=== PATIENT | female | born 1960 | race Caucasian/White ===

== ENCOUNTER 2023-09-11 20:25 | Inpatient (IN) | payer SELFPAY ==
[2023-09-11] MEDS ORDERED: Ondansetron ODT 4 MG TAB PO PRN (21:45)
[2023-09-11] MEDS ORDERED: Nitroglycerin 0.4 MG TAB (25 Tab Bottle) SL PRN (21:47)
[2023-09-11] MEDS ORDERED: HumaLOG 300 UNITS/3 ML VIAL SC PRN (22:02)
[2023-09-11] MEDS ORDERED: Glucagon 1 MG/ML KIT IM PRN (22:02)
[2023-09-11] MEDS ORDERED: Dextrose 50% Abboject 50 ML SYRINGE SLOW IVP PRN (22:02)
[2023-09-11] MEDS ORDERED: Dextrose 5% in Water 1,000 ML IV PRN (22:02)
[2023-09-11 22:07] VITALS: BMI 42.1
[2023-09-11 22:44] LABS: Troponin I Less than 0.010 ng/mL (< 0.028)
[2023-09-11 23:01] LABS: Magnesium 1.7 mg/dL (1.6-2.6)
[2023-09-11] MEDS: Ipratropium/Albuterol 3 ML NEB NEB SCH (23:24)
[2023-09-12 00:01] LABS: Actual Bicarbonate (HCO3v) 24.4 mEq/L (22-28); Base Excess 0.5 mEq/L (-2.0 to +3.0); Chloride (VBG) 102 mmol/L (98-106); Hematocrit-VBG 44 % (36.0-47.0); Potassium (VBG) 4.02 mmol/L (3.70-5.30); Sodium 138 mmol/L (133-146); pH (venous) 7.438 (7.32-7.43)
[2023-09-12] MEDS: Azithromycin 500 MG in Sodium Chloride 0.9% 250 ML 250 ML IVPB SCH ×2 (00:02→23:57)
[2023-09-12] MEDS: Nicotine 14 MG PATCH TD SCH (00:03)
[2023-09-12 00:42] LABS: Bilirubin Negative (Negative); Blood, Urine Negative (Negative); Clarity Clear (Clear); Glucose, Urine (Dipstick) Normal (Negative); Ketone, Urine Negative (Negative); Leukocyte 250 Leu/uL (Negative); Nitrite Negative (Negative); Protein, Urine (Dipstick) 10 mg/dL (Neg-Trace); Specific Gravity, Urine 1.029 (1.002-1.036); Urobilinogen Normal mg/dL (Less than 2); pH, Urine 5.5 (5.0-9.0)
[2023-09-12 00:43] LABS: Bacteria/HPF None Seen HPF (None Seen); CAUTI Indications for Culture Dysuria,urgency,freq; RBC/HPF 0-3 HPF (0-3)
[2023-09-12 00:46] LABS: Urine Culture Reflex No No
[2023-09-12] MEDS: Ipratropium/Albuterol 3 ML NEB NEB SCH ×3 (02:02→13:53)
[2023-09-12 05:14] LABS: #Eosinphils 0.1 thou/uL (0.0-0.7); #Monocytes 0.7 thou/uL (0.11-0.59); #Neutrophils 5.3 thou/uL (1.40-6.50); %Basophils 0.4 % (0.0-1.0); %Eosinophils 0.7 % (0.0-10.0); %Lymphocytes 25.4 % (21.0-51.0); %Monocytes 8.7 % (0.0-10.0); %Neutrophils 64.4 % (42.0-75.0); Hematocrit 44.2 % (36.0-47.0); Hemoglobin 13.8 g/dL (12.0-16.0); Mean Corpuscular HGB CONC 31.2 g/dL (32.0-36.0); Mean Corpuscular Hemoglobin 26.4 pg (27.0-31.0); Mean Corpuscular Volume 84.7 fl (78.0-98.0); Mean Platelet Volume 11.6 fL (7.4-10.4); Platelet Count 240 10x3/uL (130-400); RBC Distribution Width 14.7 % (11.5-14.5); Red Blood Cell (RBC) Count 5.22 mill/uL (4.20-5.40); White Blood Cell (WBC) Count 8.2 10x3/uL (4.8-10.8)
[2023-09-12 05:23] LABS: Hemoglobin A1c 5.9 % (4.0-6.0)
[2023-09-12 05:37] LABS: ALT (SGPT) 12 U/L (8-55); AST (SGOT) 11 U/L (5-34); Albumin 4.4 g/dL (3.4-4.8); Alkaline Phosphatase 105 U/L (40-110); Anion Gap 13 mmol/L (10-20); BUN (Urea Nitrogen) 14 mg/dL (9.8-20.1); Bilirubin, Total 0.2 mg/dL (0.2-1.2); Calc. Creatinine Clearance 160 mL/min (70-130); Calcium 9.1 mg/dL (7.8-10.44); Carbon Dioxide 27 mmol/L (23-31); Chloride 102 mmol/L (98-107); Estimated GFR 98; Globulin 2.4 g/dL (2.4-3.5); Glucose 136 mg/dL (80-115); Protein, Total 6.8 g/dL (5.8-8.1); Sodium 138 mmol/L (136-145)
[2023-09-12 05:41] LABS: Troponin I Less than 0.010 ng/mL (< 0.028)
[2023-09-12] MEDS: Acetaminophen 325 MG TAB PO PRN ×3 (05:47→20:51)
[2023-09-12] MEDS: Mometasone 200 MCG/Formoterol 5 MCG 120 PUFF INHALER INH SCH ×2 (07:51→19:35)
[2023-09-12] MEDS ORDERED: Iopamidol-370 76% 500 ML MDV (1 ML CHARGE) ONE (08:35)
[2023-09-12] MEDS ORDERED: Pantoprazole 40 MG VIAL IVP SCH (09:00)
[2023-09-12] MEDS ORDERED: methylPREDNISolone Sod Succ 40 MG VIAL IVP SCH (09:00)
[2023-09-12] MEDS ORDERED: Famotidine/PF 20 mg/2ml Vial SLOW IVP SCH (09:00)
[2023-09-12] MEDS: Losartan 25 MG TAB PO SCH (09:06)
[2023-09-12] MEDS: Hydrochlorothiazide 25 MG TAB PO SCH (09:07)
[2023-09-12] MEDS: Aspirin Chewable 81 MG TAB PO SCH (09:08)
[2023-09-12] MEDS ORDERED: Ipratropium/Albuterol 3 ML NEB NEB PRN (11:07)
[2023-09-12] MEDS: HumaLOG 300 UNITS/3 ML VIAL SC PRN (20:51)
[2023-09-12] MEDS: Atorvastatin Calcium 20 MG TAB PO SCH (20:51)
[2023-09-13] MEDS: Nicotine 14 MG PATCH TD SCH ×3 (00:07→20:48)
[2023-09-13] MEDS: Mometasone 200 MCG/Formoterol 5 MCG 120 PUFF INHALER INH SCH ×2 (07:29→19:22)
[2023-09-13] MEDS: Hydrochlorothiazide 25 MG TAB PO SCH (11:49)
[2023-09-13] MEDS: Senokot S 8.6-50 MG TAB PO PRN (11:50)
[2023-09-13] MEDS: Losartan 25 MG TAB PO SCH (11:50)
[2023-09-13] MEDS: Aspirin Chewable 81 MG TAB PO SCH (11:50)
[2023-09-13] MEDS: Acetaminophen 325 MG TAB PO PRN ×2 (11:50→20:46)
[2023-09-13] MEDS: Atorvastatin Calcium 20 MG TAB PO SCH (20:46)
[2023-09-13] MEDS: HumaLOG 300 UNITS/3 ML VIAL SC PRN (21:26)
[2023-09-13] MEDS: Azithromycin 500 MG in Sodium Chloride 0.9% 250 ML 250 ML IVPB SCH (23:03)
[2023-09-13] MEDS ORDERED: Ketorolac Tromethamine 30 MG/ML VIAL IVP SCH (23:30)
[2023-09-14] MEDS: Mometasone 200 MCG/Formoterol 5 MCG 120 PUFF INHALER INH SCH (07:37)
[2023-09-14] MEDS ORDERED: Fioricet 325/50/40 mg Tablet PO PRN (08:56)
[2023-09-14] MEDS ORDERED: FLU VACC QS2023-24(6MOS UP)/PF 60 MCG/0.5 ML SYRINGE IM ONE (09:00)
[2023-09-14] MEDS: Senokot S 8.6-50 MG TAB PO PRN (09:59)
[2023-09-14] MEDS: Losartan 25 MG TAB PO SCH (10:00)
[2023-09-14] MEDS: Acetaminophen 325 MG TAB PO PRN (10:00)
[2023-09-14] MEDS: Hydrochlorothiazide 25 MG TAB PO SCH (10:01)
[2023-09-14] MEDS: Aspirin Chewable 81 MG TAB PO SCH (10:01)
[2023-09-14] MEDS ORDERED: Erythromycin Base 0.5% Oint 1 GM TUBE EA EYE SCH (11:00)
[2023-09-14 11:53] VITALS: BP 142/80; TEMP 97.7
[2023-10-14] MEDS ORDERED: Regadenoson 0.4 MG/5 ML SYRINGE ONE (09:33)
== END 2023-09-14 13:54 | disposition home or self-care (01) | DRG 391 ==
LOC: UNDOADMOB 20:25 → 2SW 20:25 → OBSVTOIN 09-12 14:48
PROVIDERS: ADMIT Student in an Organized Health Care Education/Training Program; ATTEND Family Medicine
PROC: 4A043R1 Measurement of Venous Saturation, Peripheral, Percutaneous Approach (ICD-10-PCS; principal; 2023-09-11)
DX: K21.9 Gastro-esophageal reflux disease without esophagitis (principal); J96.01 Acute respiratory failure with hypoxia; E78.5 Hyperlipidemia, unspecified; I10 Essential (primary) hypertension; E11.9 Type 2 diabetes mellitus without complications; Z79.84 Long term (current) use of oral hypoglycemic drugs; Z79.899 Other long term (current) drug therapy; F17.290 Nicotine dependence, other tobacco product, uncomplicated; Z79.82 Long term (current) use of aspirin; Z79.4 Long term (current) use of insulin
CPT/HCPCS: 36415; 36416; 71275; 76705; 78452; 80053; 81001; 82805; 83036; 83735; 84145; 84484; 85025; 93017; 93306; 94640; 94760; 96372; 96374; 96375; A9500; C9113; G0378; J0456; J1650; J1815; J1885; J2785; J2920; J7050; J7620; Q9967